=== PATIENT | male | born 1995 | race African-American/Black ===

== ENCOUNTER 2018-08-26 14:20 | Emergency (ER) | END 2018-08-26 16:25 | disposition home or self-care (01) ==

== ENCOUNTER 2018-09-29 23:42 | Emergency (ER) | payer SELFPAY ==
[~2018-09-29] VITALS: Wt 110.9 kg
[~2018-09-29 23:42] MED LIST: ACET500C5 PO
[2018-09-29 23:45] VITALS: BP 148/73; PULSE 82; RESP 18
== END 2018-09-30 00:45 | disposition left against medical advice (07) ==
LOC: FTE 23:42
DX: Z53.21 Procedure and treatment not carried out due to patient leaving prior to being seen by health care provider (principal)

== ENCOUNTER 2019-02-03 12:58 | Emergency (ER) | payer OTHER ==
[~2019-02-03] VITALS: Ht 180.3 cm; Wt 93.6 kg
[2019-02-03 13:04] VITALS: Ht 180.3 cm; Wt 93.6 kg
[2019-02-03] MEDS ORDERED: ACETAMINOPHEN 500 MG TAB PO STA (14:01)
[2019-02-03] MEDS ORDERED: KETOROLAC 30 MG INJ IM STA (14:11)
[2019-02-03] MEDS ORDERED: IBUPROFEN LIQUID (PED) 20 MG/ML CUP PO STA (14:14)
[2019-02-03] MEDS ORDERED: IBUPROFEN 600 MG TAB PO ONE (14:30)
[2019-02-03] MEDS ORDERED: ACETAMINOPHEN 160 MG/5ML CUP PO ONE (14:30)
[2019-02-03] MEDS ORDERED: IBUP-1542 PO (15:47)
[2019-02-03] MEDS ORDERED: AMOX500C2 PO (15:47)
[2019-02-03 16:10] VITALS: BP 114/57; PULSE 102; RESP 18
--- NOTE | 2019-02-03 16:11 | ERD ---
ER Documentation Chief Complaint Chief Complaint c/o sore throat, fever for few days; no drooling, no stridors HPI Patient is a 23-year-old male who presents the ER for concerns of throat pain and fevers x 1 week. Patient reports intermittent tactile fevers. He has not taken any medication because it given that he is unable to swallow medications. Patient denies any drooling, trismus or hyperextension of his neck. Patient has no neck pain or neck stiffness. Patient has no nausea or vomiting. Patient denies any cough, nausea, vomiting, abdominal pain or diarrhea. No recent travel. No sick contacts. ROS All systems reviewed and are negative except as per history of present illness. Medications Home Meds Active Scripts Ibuprofen* (Motrin*) 600 Mg Tab, 600 MG PO Q6, #30 TAB Prov:KALIA JOHNSON PA-C 02/03/19 Amoxicillin* (Amoxicillin*) 500 Mg Cap, 500 MG PO BID for 10 Days, CAP Prov:KALIA JOHNSON PA-C 02/03/19 Acetaminophen* (Tylophen*) 500 Mg Capsule, 1 CAP PO Q6H PRN for PAIN AND OR ELEVATED TEMP, #20 CAP Prov:HELEN SNOWDEN PA-C 08/26/18 Allergies Allergies: Coded Allergies: No Known Allergy (Unverified , 08/26/18) PMhx/Soc Medical and Surgical Hx: pt denies Surgical Hx Hx Cardiac Disorders: Yes (HTN) Hx Alcohol Use: No Hx Substance Use: No Hx Tobacco Use: No Smoking Status: Never smoker FmHx Family History: No diabetes Physical Exam Vitals Vital Signs Date Temp Pulse Resp B/P (MAP) Pulse Ox O2 O2 Flow FiO2 Time Delivery Rate 02/03/19 103.1 14:42 02/03/19 103.1 14:42 02/03/19 102.4 100 20 117/60 100 13:04 (79) Physical Exam GENERAL: Well-developed, well-nourished male. Appears in no acute distress. HEAD: Normocephalic, atraumatic. No deformities or ecchymosis. EYE: Pupils equal, round, and reactive to light. EOMs intact. No conjunctival erythema. No eye discharge. ENT: External ear without any masses or tenderness. Auditory canals clear bilaterally. TM visualized bilaterally, non-erythematous, non-bulging. Nasal mucosa pink with no discharge. Oropharynx is erythematous with 1+ tonsillar enlargement noted bilaterally. Exudates noted bilaterally. No uvula deviation. No kissing tonsils. No drooling. No trismus. No hyperextension of the neck. NECK: Supple. No meningismus. Normal ROM of the neck. LUNG: Clear to auscultation bilaterally. No rhonchi, wheezing, rales or coarse breath sounds. HEART: Regular rate and rhythm. No murmurs, rubs or gallops. BACK: No midline tenderness. EXTREMITES: Equal pulses bilaterally. No peripheral clubbing, cyanosis or edema. No unilateral leg swelling. NEUROLOGIC: Alert and oriented to person, place and time. Moving all four extremities. 5/5 strength in all extremities. Normal speech. Steady gait. SKIN: Normal color. Warm and dry. No rashes or lesions. Results 24 hrs Laboratory Tests Test 02/03/19 14:37 Monoscreen Negative Current Medications Medications Dose Sig/Radha Start Time Status Last (Trade) Ordered Route PRN Stop Time Admin Dose Reason Admin 1,000 mg ONCE STAT 02/03/19 DC Acetaminophen PO 14:01 (Tylenol 02/03/19 14:16 Tab) Ibuprofen 600 mg ONCE ONCE 02/03/19 DC (Motrin) PO 14:30 02/03/19 14:30 Ketorolac 30 mg ONCE STAT 02/03/19 DC Tromethamine IM 14:11 (Toradol) 02/03/19 14:16 Ibuprofen 600 mg ONCE STAT 02/03/19 DC 02/03/19 (Motrin PO 14:14 14:42 Liquid 02/03/19 14:16 (Ped)) 1,000 mg ONCE ONCE 02/03/19 DC 02/03/19 Acetaminophen PO 14:30 14:42 (Tylenol 02/03/19 14:31 Liquid (Ped)) Procedures/MDM MEDICAL DECISION MAKING: This is a 23-year-old male presents ER for concerns of fevers and throat pain x1 week. Vital signs were reviewed. Patient was febrile with a temperature of 102. Patient was given Tylenol and Motrin and temperature was noted to be downtrending. Patient was not hypoxic. The patient does not have trismus, muffled voice, uvula deviation, unilateral tonsillar swelling, or drooling. No signs of neck swelling or hyperextension of the neck noted. Monospot was negative. At this time, patient presentation was consistent with presumed strep pharyngitis. Low suspicion for epiglottitis, peritonsillar abscess, retropharyngeal abscess, Ludwigs angina, dental abscess. Low suspicion for sepsis. Vitals improved prior to discharge. Patient was able to tolerate p.o. fluids without any difficulty prior to discharge. Patient was nontoxic, [id number] prior to discharge. PRESCRIPTIONS: Amoxicillin, ibuprofen DISCHARGE: At this time, patient is stable for discharge and outpatient management. Supportive therapies such as OTC throat lozenges and warm salt water gurgles were discussed. I have instructed the patient to follow-up with his/her primary care physician in 1-2 days. I have discussed with the patient the possibility of needing to see a specialist for further workup and imaging studies if symptoms persist. I have instructed the patient to promptly return to the ER for any new or worsening symptoms including increased pain, fever, nausea, vomiting, weakness or LOC. The patient and/or family expressed understanding of and agree ment with this plan. All questions were answered. Home care instructions were provided. Disclaimer: Inadvertent spelling and grammatical errors are likely due to EHR/dictation software use and do not reflect on the overall quality of patient care. Also, please note that the electronic time recorded on this note does not necessarily reflect the actual time of the patient encounter. Departure Diagnosis: Primary Impression: Strep pharyngitis Condition: Fair Patient Instructions: Strep Throat Referrals: [facility] YOU HAVE RECEIVED A MEDICAL SCREENING EXAM AND THE RESULTS INDICATE THAT YOU DO NOT HAVE A CONDITION THAT REQUIRES URGENT TREATMENT IN THE EMERGENCY DEPARTMENT. FURTHER EVALUATION AND TREATMENT OF YOUR CONDITION CAN WAIT UNTIL YOU ARE SEEN IN YOUR DOCTORS OFFICE WITHIN THE NEXT 1-2 DAYS. IT IS YOUR RESPONSIBILITY TO MAKE AN APPOINTMENT FOR FOL-UP CARE. IF YOU HAVE A PRIMARY DOCTOR --you should call your primary doctor and schedule an appointment IF YOU DO NOT HAVE A PRIMARY DOCTOR YOU CAN CALL OUR PHYSICIAN REFERRAL HOTLINE AT IF YOU CAN NOT AFFORD TO SEE A PHYSICIAN YOU CAN CHOSE FROM THE FOLLOWING [facility] [address] [facility]. [facility] [address] [facility]. [facility] [address] [facility] [facility] [address] [facility]. [facility] [address] [facility]. [facility]. [address] [facility]. [facility] YOU HAVE RECEIVED A MEDICAL SCREENING EXAM AND THE RESULTS INDICATE THAT YOU DO NOT HAVE A CONDITION THAT REQUIRES URGENT TREATMENT IN THE EMERGENCY DEPARTMENT. FURTHER EVALUATION AND TREATMENT OF YOUR CONDITION CAN WAIT UNTIL YOU ARE SEEN IN YOUR DOCTORS OFFICE WITHIN THE NEXT 1-2 DAYS. IT IS YOUR RESPONSIBILITY TO MAKE AN APPOINTMENT FOR FOLOW-UP CARE. IF YOU HAVE A PRIMARY DOCTOR --you should call your primary doctor and schedule and appointment IF YOU DO NOT HAVE A PRIMARY DOCTOR YOU CAN CALL OUR PHYSICIAN REFERRAL HOTLINE AT . IF YOU CAN NOT AFFORD TO SEE A PHYSICIAN YOU CAN CHOSE FROM THE FOLLOWING [facility] INSTITUTIONS: [facility] [id number] [place] [address] [facility] [address] [place] [address] [facility] [address] [place] [address] Additional Instructions: Call your primary care doctor TOMORROW for an appointment during the next 1-2 days.See the doctor sooner or return here if your condition worsens before your appointment time. KALIA JOHNSON PA-C February 03, 2019 16:11
== END 2019-02-03 16:11 | disposition home or self-care (01) ==
LOC: FTE 12:58
DX: J02.0 Streptococcal pharyngitis (principal); I10 Essential (primary) hypertension
CPT/HCPCS: 86308; Z7502; Z7610; 99283; J1885

== ENCOUNTER 2019-02-08 03:04 | Emergency (ER) | payer OTHER ==
[~2019-02-08] VITALS: Wt 96.9 kg
[~2019-02-08 03:04] MED LIST changes: +AMOX500C2 PO; +IBUP-1542 PO
[2019-02-08 03:07] VITALS: BP 117/80; PULSE 96; RESP 18
[2019-02-08] MEDS ORDERED: AMOX500C2 PO (04:25)
[2019-02-08] MEDS ORDERED: IBUP-1542 PO (04:25)
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
== END 2019-02-08 04:57 | disposition home or self-care (01) ==
LOC: FTE 03:04
DX: Z76.0 Encounter for issue of repeat prescription (principal)
CPT/HCPCS: 99281